=== PATIENT | female | born 1970 | race Caucasian/White ===

== ENCOUNTER → 2016-11-01 | Day surgery (SDC) | payer OTHER ==
[~2016-11-01] VITALS: Ht 157.5 cm; Wt 82.6 kg
[~2016-11-01] MED LIST: FLEXERIL10 MG PO; PERCOCET 325 MG1 TA2 PO
--- NOTE | 2016-11-01 07:19 | History & Physical Pre-Op ---
General Information and HPI Exam Limitations: dementia History of Present Illness: 46yo with menorrhagia desires surgical treatment; she has had previous hormonal treatemrnt and has had blood 0pressure issues. she desires surgical therapy and also requests tubal sterilization. Allergies/Medications Allergies: Coded Allergies: NO KNOWN ALLERGIES (10/31/16) Home Med list CYCLOBENZAPRINE HCL (Flexeril) 10 MG TAB 1 TAB PO Q8HR PRN MUSCLE SPASMS OXYCODONE HCL/ACETAMINOPHEN (Percocet 5-325 MG Tablet) 325 MG/5 MG TAB 1-2 TAB PO Q4-6 PRN PRN PAIN Past History Medical History Neurological: NONE EENT: NONE Cardiovascular: NONE Respiratory: NONE Gastrointestinal: NONE Hepatic: NONE Renal: NONE Musculoskeletal: osteoarthritis Psychiatric: NONE Endocrine: NONE Blood Disorders: NONE Cancer(s): NONE DRYWALL APPLICATOR/Reproductive: NONE Surgical History Pertinent Surgical History: D & C Review of Systems Review of Systems Constitutional: Reports: no symptoms. EENTM: Reports: no symptoms. Cardiovascular: Reports: no symptoms. Respiratory: Reports: no symptoms. GI: Reports: no symptoms. Genitourinary: Reports: see HPI. Musculoskeletal: Reports: no symptoms. Skin: Reports: no symptoms. Neurological/Psychological: Reports: no symptoms. Hematologic/Endocrine: Reports: no symptoms. Immunologic/Allergic: Reports: no symptoms. All Other Systems: Reviewed and Negative Exam & Diagnostic Data Last 24 Hrs of Vital Signs/I&O Intake & Output 11/01 0800 02/ 0000 10/31 1600 Intake Total Output Total Balance Patient 182 lb Weight Physical Exam: HEENT: NCAT Chest: CTA CV: nl S1S2 Abd: soft NT Pelvic: deferred\ Ext: no c/c/e NeuroL: nonfocal Assessment/Plan Assessment/Plan: menorrhagia multiparity Novasure and LTS As Ranked By This Provider Problem List: 1. Menorrhagia
--- NOTE | 2016-11-06 09:41 | Operative Report ---
Operative/Inv Procedure Report Surgery Date: 11/01/16 Name of Procedure: Laparoscopic tubal sterilization, D&C, NovaSure ablation Pre-Operative Diagnosis: Multi parity, menorrhagia Post-Operative Diagnosis: Same Estimated Blood Loss: less than 50ml Surgeon/[employer] Commerce Retailer: ROSA VARGAS MD Anesthesia: general endotracheal tube Operative/Procedure Note Note: The patient was taken to the operating room placed on the OR table in the dorsal supine position. Betadine boots were placed and activated. She was given adequate general anesthesia and successfully intubated. She was repositioned into modified dorsal lithotomy and prepped and draped in the usual sterile fashion. A weighted speculum was inserted into the vagina and with the help of a Marilee retractor a single-toothed tenaculum was attached to the anterior lip of the cervix. An acorn cannula was then inserted to the cervical os and attached to the tenaculum. The speculum was was removed. A Jimenez catheter was placed and drained yellow urine. The surgeon's gloves were then changed and attention was paid to the abdomen. An infraumbilical skin incision was made with the scalpel and the Veress needle was placed into the abdominal cavity and insufflated with CO2 gas under high flow and low pressure until an adequate pneumoperitoneum had been achieved. At this point appears needle was removed and replaced with a 5 mm disposable trocar. The trocar was passed with the sleeve and then removed and replaced with the camera. The camera revealed good anatomic location as well as hemostasis. The patient was placed into Trendelenburg position. A suprapubic stab incision was made with the scalpel and a 5 mm disposable trocar was inserted under direct visualization. Through this trocar sleeve the Kleppinger bipolar cautery was placed and the right fallopian tube was grasped and coagulated in 200 wattage and several areas summoning to 4 cm in toto. Pictures were taken. The left fallopian tube likewise was grasped with the Kleppinger clamp and coagulated for 4 cm in length. The upper abdomen was explored and noted to be without pathology. The Kleppinger was then removed and the trochars were removed and the CO2 gas was allowed to escape the abdomen. The incisions were closed in an interrupted fashion of 3-0 Biosyn. Attention was then paid to the pelvis. On cannula was removed and the cervix was noted. An endocervical return curettage was performed. The cervix was dilated and a sharp curettage was performed. The NovaSure was placed into the uterus measurements were taken and the NovaSure was activated at 107 W for approximately 60 seconds. At the removal the NovaSure was noted to be intact and hemostasis was good. The tenaculum was removed patient was then awakened and sent to recovery in good condition All needle, sponge, and instrument counts were correct at the end of the procedure 2.
== END ==
LOC: STS 02:33
DX: Z30.2 Encounter for sterilization (principal); N92.0 Excessive and frequent menstruation with regular cycle; I10 Essential (primary) hypertension; M19.90 Unspecified osteoarthritis, unspecified site
CPT/HCPCS: 81025; 88305; J0131; J2250